=== PATIENT | female | born 1990 | race Two or more races ===

== ENCOUNTER 2024-02-23 12:14 | Emergency (ER) | payer BC ==
[~2024-02-23] VITALS: Ht 149.9 cm; Wt 43.1 kg
[2024-02-23] MEDS ORDERED: BENZONATATE 100 MG CAPSULE PO ONE (12:41)
[2024-02-23] MEDS: BENZONATATE 100 MG CAPSULE PO PRN (12:44)
[2024-02-23] MEDS ORDERED: ALBU18HF2 INH (13:15)
[2024-02-23] MEDS ORDERED: BENZ-13 PO (13:15)
[2024-02-23 13:50] VITALS: BP 113/82; TEMP 98.8; O2SAT 98
== END 2024-02-23 13:50 | disposition home or self-care (01) ==
LOC: ER 12:23
DX: R05.9 Cough, unspecified (principal)
CPT/HCPCS: 71045-TC